=== PATIENT | female | born 1950 | race Caucasian/White ===

== ENCOUNTER 2023-07-18 18:21 | Observation (INO) | payer SELFPAY ==
--- NOTE | 2023-07-18 19:17 | RAD REPORT ---
EXAM DESCRIPTION: CT - Head Brain Wo Cont - 07/18/2023 7:11 pm CLINICAL HISTORY: CONFUSED Headache, drowsiness, disorientation COMPARISON: No comparisons TECHNIQUE: All CT scans are performed using dose optimization technique as appropriate and may inclu de automated exposure control or mA/KV adjustment according to patient size. FINDINGS: No intracranial hemorrhage, hydrocephalus or extra-axial fluid collection.Moderate general ized brain atrophy is present with mild periventricular and deep white matter chronic microvascular i schemic changes.No areas of brain edema or evidence of midline shift. The paranasal sinuses and mastoids are clear. The calvarium is intact. IMPRESSION: No acute intracranial abnormality.
[2023-07-18 19:19] LABS: Absolute Lymphocytes (CBC) 0.9 K/uL (0.7-4.9); Hematocrit 42.4 % (36.0-45.0); Lymphocytes % 14.1 % (15.3-44.8); MCV 97.8 fL (80-100); MPV 8.8 fL (7.6-11.3); Platelets 273 thou/uL (152-406); RBC Red Blood Cell Count 4.34 M/uL (3.86-4.86)
[2023-07-18 19:25] LABS: Protime INR 0.93
[2023-07-18 19:33] LABS: ALT/SGPT 28 U/L (13-56); AST/SGOT 28 U/L (15-37); Albumin 3.2 g/dL (3.4-5.0); Alkaline Phosphatase 231 U/L (45-117); BUN Blood Urea Nitrogen 10 mg/dL (7-18); Bicarbonate 26 mEq/L (21-32); Bilirubin Direct 0.4 mg/dL (0-0.2); Bilirubin Indirect, Calculated 0.7 mg/dL (0.2-0.8); Bilirubin Total 1.1 mg/dL (0.2-1.0); Glomerular Filtration Rate 85 ml/min (=/>90); Glucose Level 117 mg/dL (74-106); Potassium 3.1 mEq/L (3.5-5.1); Protein, Total 6.9 g/dL (6.4-8.2); Sodium Level 136 mEq/L (136-145)
[2023-07-18] MEDS ORDERED: NA CHLORIDE 0.9% 1,000 ML ONE (19:46)
[2023-07-18] MEDS ORDERED: IBUPROFEN 400 MG TAB ONE (19:47)
[2023-07-18] MEDS ORDERED: IBUPROFEN 200 MG TAB PO ONE (19:47)
[2023-07-18] MEDS ORDERED: POTASSIUM 25 MEQ EFFERV TAB ONE (20:11)
[2023-07-18 20:56] LABS: Renal Epithelial <5 /HPF (None Seen); Specific Gravity 1.013 (1.005-1.030); Urine Bacteria None Seen /HPF (<20); Urine Bilirubin NEGATIVE (Negative); Urine Blood Negative (Negative); Urine Clarity Turbid (Clear); Urine Color Yellow (Yellow); Urine Glucose NEGATIVE (Negative); Urine Mucus Slight /HPF (None Seen); Urine Protein NEGATIVE (Negative); Urine RBC <5 /HPF (None Seen); Urine Urobilinogen 1+ (Normal); Urine pH 6.5 (5.0-7.0)
[2023-07-18 21:04] LABS: Barbiturates NEGATIVE (NEGATIVE); Benzodiazepines NEGATIVE (NEGATIVE); Cocaine NEGATIVE (NEGATIVE); METHAMPHETAM NEGATIVE (NEGATIVE); Methadone NEGATIVE (NEGATIVE); Opiates NEGATIVE (NEGATIVE); Phencyclidine NEGATIVE (NEGATIVE); THC Cannibis NEGATIVE (NEGATIVE)
--- NOTE | 2023-07-18 21:19 | EDPHYS ---
Physician Documentation [facility] Name: Crystal Shelton Age: 72 yrs Sex: Female : 1950 Arrival Date: 07/18/2023 Time: 18:21 Bed 16 Private MD: ED Physician Magdalena Moffett HPI: 07/18 19:26 This 72 yrs old Female presents to ER via EMS with complaints of Altered Mental Status. sb4 19:26 The patient presents with confusion. EMS was called because patient was loitering at a 4 gas station. She believes that a family member dropped her off there. She has bruising around her right eye with a healing laceration above. [place] stated that [place], [place]. She knows her name, , and the year. complains of chronic pain in her shoulder, back, and legs. Historical: - Allergies: 18:35 Ativan; cm10 - PMHx: 18:35 Unable to Obtain; cm10 - Immunization history:: Adult Immunizations unknown. - Social history:: Smoking status: Patient reports the use of cigarette tobacco products, smokes one pack cigarettes per day. ROS: 19:26 Constitutional: Negative for fever, chills, and weight loss, sb4 19:26 Unable to obtain ROS due to altered mental status, Exam: 19:26 Constitutional: This is a well developed, well nourished patient who is awake, alert, sb4 and in no acute distress. 19:26 Head/Face: Normocephalic, atraumatic. ENT: Mucous membranes moist. Cardiovascular: Regular rate and rhythm with a normal S1 and S2. Respiratory: Lungs have equal breath sounds bilaterally, clear to auscultation and percussion. No rales, rhonchi or wheezes noted. No increased work of breathing, no retractions or nasal flaring. Abdomen/GI: Soft, non-tender, no distension. Skin: Warm, dry with normal turgor. Normal color with no rashes, no lesions, and no evidence of cellulitis. MS/ Extremity: Pulses equal, no cyanosis. Neurovascular intact. Full, normal range of motion. 19:26 Head/face: 19:26 Eyes: Periorbital structures: ecchymosis, that is moderate, on the right upper eyelid, medial canthus of right eye, lateral canthus of right eye and right lower eyelid, 19:26 Neuro: Orientation: to person, time, Not oriented to place, situation, Mentation: responsive to voice lucid, able to follow commands, confused, Memory: recent memory is impaired, Cerebellar function: is grossly normal, Motor: is normal, Sensation: is normal, Gait: is steady, appropriate for age, Vital Signs: 18:31 BP 142 / 84; Pulse 110; Resp 16; Pulse Ox 97% on R/A; Weight 58.97 kg; Height 5 ft. 6 cm10 in. ; 18:59 Temp 97.5; db 19:30 BP 139 / 93; Pulse 95; Resp 16; Pulse Ox 97% on R/A; rv 21:10 BP 147 / 89; Pulse 104; Resp 19; Pulse Ox 99% on R/A; rv 23:05 BP 141 / 86; Pulse 85; Resp 16; Temp 98; Pulse Ox 99% on R/A; rv 18:31 Body Mass Index 20.98 (58.97 kg, 167.64 cm) cm10 Reggie Coma Score: 19:30 Eye Response: spontaneous(4). Motor Response: obeys commands(6). Verbal Response: rv confused(4). Total: 14. 21:11 Eye Response: spontaneous(4). Motor Response: obeys commands(6). Verbal Response: rv confused(4). Total: 14. 23:05 Eye Response: spontaneous(4). Motor Response: obeys commands(6). Verbal Response: rv confused(4). Total: 14. MDM: 18:31 Patient medically screened. sb4 19:26 Differential Diagnosis: CVA, electrolyte abnormality, alcohol intoxication, sb4 hypoglycemia, intracranial bleed, overdose, TIA, UTI. 21:17 Data reviewed: vital signs, nurses notes, lab test result(s), EKG, radiologic studies, sb4 I have discussed the patient's presentation/case with the attending Emergency Department Physician; and as a result, I will admit patient. Consideration of Admission/Observation Patient was admitted/placed on observation. Management of patient was discussed with the following: Hospitalist: dr reyes. Counseling: I had a detailed discussion with the patient and/or guardian regarding the historical points, exam findings, and any diagnostic results supporting the discharge/admit diagnosis, the presence of at least one elevated blood pressure reading (>120/80) during this emergency department visit, lab results, radiology results, the need for further work-up and treatment in the hospital. 21:17 Care significantly affected by the following Social Determinants of Health: Poor access sb4 to healthcare and/or lack of insurance, Poor access to transportation, Problems related to primary support group. 07/18 18:42 Order name: Acetaminophen; Complete Time: 19:39 sb4 07/18 18:42 Order name: Basic Metabolic Panel; Complete Time: 19:39 sb4 07/18 18:43 Order name: CBC with Diff; Complete Time: 19:23 sb4 07/18 18:43 Order name: ETOH Level; Complete Time: 19:34 sb4 07/18 18:43 Order name: Hepatic Function; Complete Time: 19:39 sb4 07/18 18:43 Order name: PT-INR; Complete Time: 19:26 sb4 07/18 18:43 Order name: Ptt, Activated; Complete Time: 19:26 sb4 07/18 18:43 Order name: Salicylate; Complete Time: 19:30 sb4 07/18 18:43 Order name: Urinalysis w/ reflexes; Complete Time: 20:59 sb4 07/18 18:43 Order name: Urine Drug Screen; Complete Time: 21:05 sb4 07/18 18:43 Order name: AMMONIA; Complete Time: 20:02 sb4 07/18 22:44 Order name: CBC with Automated Diff EDMS 07/18 22:44 Order name: CBC with Automated Diff EDMS 07/18 22:44 Order name: Comprehensive Metabolic Panel EDMS 07/18 22:44 Order name: Comprehensive Metabolic Panel EDMS 07/18 22:44 Order name: Lipid Profile EDMS 07/18 22:44 Order name: Lipid Profile EDMS 07/18 22:44 Order name: Magnesium EDMS 07/18 22:44 Order name: Magnesium EDMS 07/18 18:43 Order name: Head Brain Wo Cont CT; Complete Time: 19:19 sb4 07/18 18:43 Order name: EKG; Complete Time: 18:43 sb4 07/18 18:43 Order name: EKG - Nurse/Tech; Complete Time: 19:19 sb4 02/03 18:43 Order name: IV Saline Lock; Complete Time: 19:19 sb4 07/18 18:43 Order name: Labs collected and sent; Complete Time: 19:19 sb4 07/18 18:43 Order name: Suicide Screening ([place]); Complete Time: 19:19 sb4 Administered Medications: 19:50 Drug: NS 0.9% IV 1000 ml IV at 1 bolus Per protocol; 1000 mL bolus Route: IV; Rate: 1 rv bolus; Site: left antecubital; 23:06 Follow up: IV Status: Completed infusion; IV Intake: 1000ml rv 19:50 Drug: Ibuprofen PO 600 mg PO once Route: PO; rv 23:06 Follow up: Response: No adverse reaction rv 20:12 Drug: Potassium PO Effervescent Tablet 50 mEq PO once; dissolve in 4 ounces of water or rv juice Route: PO; 23:06 Follow up: Response: No adverse reaction rv Disposition Summary: 07/18/23 21:18 Hospitalization Ordered Notes: Hospitalization Status: Inpatient Admission sb4 Provider: Raman Reyes sb4 [facility] sb4 Condition: Fair sb4 Problem: new sb4 Symptoms: are unchanged sb4 Bed/Room Type: Standard sb4 Room Assignment: 427(07/18/23 23:00) jb4 Diagnosis - Altered mental status, unspecified sb4 Forms: - Medication Reconciliation Form sb4 - SBAR form sb4 - Leadership Thank You Letter sb4 Signatures: Dispatcher [employer] Benedicto Tian RN RN jb4 Francisco Garcia RN RN rv Brown, Sophia, PA-C PA-C sb4 Beverly Najera RN RN cm10 Corrections: (The following items were deleted from the chart) 23:00 21:18 sb4 jb4
--- NOTE | 2023-07-18 21:19 | ER ---
Nurse's Notes [facility] Name: Crystal Shelton Age: 72 yrs Sex: Female : 1950 Arrival Date: 07/18/2023 Time: 18:21 Bed 16 Private MD: Diagnosis: Altered mental status, unspecified Presentation: 07/18 18:31 Chief complaint: EMS states: called to gas station due to patient being altered. Pt cm10 thought that she was in [place]. Per EMS report, pt only oriented to self. During triage, pt A\T\Ox3. Pt noted to have bruising to right eye. Unknown when last normal was. Coronavirus screen: Vaccine status: Patient reports receiving the 2nd dose of the covid vaccine. Client denies travel out of the [place] in the last 14 days. Ebola Screen: Patient denies travel to an Ebola-affected area in the 21 days before illness onset. No symptoms or risks identified at this time. Initial Sepsis Screen: Does the patient meet any 2 criteria? No. Patient's initial sepsis screen is negative. Does the patient have a suspected source of infection? No. Patient's initial sepsis screen is negative. Risk Assessment: Do you want to hurt yourself or someone else? Patient reports no desire to harm self or others. Onset of symptoms is unknown. 18:31 Method Of Arrival: EMS: [facility] cm10 18:31 Acuity: PURNIMA 2 cm10 Historical: - Allergies: 18:35 Ativan; cm10 - PMHx: 18:35 Unable to Obtain; cm10 - Immunization history:: Adult Immunizations unknown. - Social history:: Smoking status: Patient reports the use of cigarette tobacco products, smokes one pack cigarettes per day. Screenin:50 [facility] ED Fall Risk Assessment (Adult) History of falling in the last 3 months, rv including since admission No falls in past 3 months (0 pts) Confusion or Disorientation Yes (5 pts) Score/Fall Risk Level 3 or more points = High Risk Oriented to surroundings, Maintained a safe environment, Educated pt \T\ family on fall prevention, incl call for assistance when getting out of bed, Assessed \T\ reinforced patient's understanding of fall precautions. Abuse screen: Denies threats or abuse. Denies injuries from another. Nutritional screening: No deficits noted. Tuberculosis screening: No symptoms or risk factors identified. Assessment: 18:48 Reassessment:. db 19:50 General: Appears comfortable, Behavior is calm, cooperative. Pain: Complains of pain in rv back. Neuro: Level of Consciousness is awake, alert, obeys commands, confused, Oriented to person. Cardiovascular: Capillary refill < 3 seconds Patient's skin is warm and dry. Respiratory: Airway is patent Respiratory effort is even, unlabored. GI: No signs and/or symptoms were reported involving the gastrointestinal system. : No signs and/or symptoms were reported regarding the genitourinary system. Derm: Skin is intact. Vital Signs: 18:31 BP 142 / 84; Pulse 110; Resp 16; Pulse Ox 97% on R/A; Weight 58.97 kg; Height 5 ft. 6 cm10 in. ; 18:59 Temp 97.5; db 19:30 BP 139 / 93; Pulse 95; Resp 16; Pulse Ox 97% on R/A; rv 21:10 BP 147 / 89; Pulse 104; Resp 19; Pulse Ox 99% on R/A; rv 23:05 BP 141 / 86; Pulse 85; Resp 16; Temp 98; Pulse Ox 99% on R/A; rv 18:31 Body Mass Index 20.98 (58.97 kg, 167.64 cm) cm10 [place] Coma Score: 19:30 Eye Response: spontaneous(4). Motor Response: obeys commands(6). Verbal Response: rv confused(4). Total: 14. 21:11 Eye Response: spontaneous(4). Motor Response: obeys commands(6). Verbal Response: rv confused(4). Total: 14. 23:05 Eye Response: spontaneous(4). Motor Response: obeys commands(6). Verbal Response: rv confused(4). Total: 14. ED Course: 18:27 Patient arrived in ED. cm10 18:31 Татьяна Moran PA-C is PHCP. sb4 18:31 Magdalena Moffett MD is Attending Physician. sb4 18:34 Triage completed. cm10 18:35 Arm band placed on Patient placed in an exam room, on a stretcher, on pulse oximetry. cm10 19:13 Head Brain Wo Cont CT In Process Unspecified. EDMS 19:20 Francisco Garcia, RN is Primary Nurse. rv 19:50 Patient has correct armband on for positive identification. Client placed on continuous rv cardiac and pulse oximetry monitoring. NIBP monitoring applied. hospital monitor on. 19:50 No provider procedures requiring assistance completed. Inserted saline lock: 22 gauge rv in left antecubital area, using aseptic technique. Blood collected. 21:18 Raman Reyes MD is Hospitalizing Provider. sb4 23:05 Patient admitted, IV remains in place. rv Administered Medications: 19:50 Drug: NS 0.9% IV 1000 ml IV at 1 bolus Per protocol; 1000 mL bolus Route: IV; Rate: 1 rv bolus; Site: left antecubital; 23:06 Follow up: IV Status: Completed infusion; IV Intake: 1000ml rv 19:50 Drug: Ibuprofen PO 600 mg PO once Route: PO; rv 23:06 Follow up: Response: No adverse reaction rv 20:12 Drug: Potassium PO Effervescent Tablet 50 mEq PO once; dissolve in 4 ounces of water or rv juice Route: PO; 23:06 Follow up: Response: No adverse reaction rv Medication: 19:50 VIS not applicable for this client. rv Intake: 23:06 IV: 1000ml; Total: 1000ml. rv Outcome: 21:18 Decision to Hospitalize by Provider. sb4 23:04 Admitted to Med/surg accompanied by tech, via wheelchair, room 427, with chart, Report rv called to freida yeager 23:04 Condition: good 23:04 Instructed on the need for admit, 23:15 Patient left the ED. rv Signatures: Dispatcher [employer] EDMS Francisco Garcia RN RN rv Tanya Jacobo RN Татьяна Neri PANicolette PA-Jimmie [email or web address] Beverly Najera RN RN cm10
[2023-07-18] MEDS ORDERED: ACETAMINOPHEN 325 MG TABLET PO PRN (22:38)
[2023-07-18] MEDS ORDERED: ONDANSETRON 4 MG/2 ML VIAL IV PRN (22:38)
--- NOTE | 2023-07-18 22:46 | P.HP ---
Certification for Inpatient Patient admitted to: Observation With expected LOS: <2 Midnights Practitioner: I am a practitioner with admitting privileges, knowledge of patient current condition, hospital course, and medical plan of care. Services: Services provided to patient in accordance with Admission requirements found in Title 42 Section 412.3 of the Code of Federal Regulations Patient History Date of Service: 07/19/23 Reason for admission: Altered mentation. History of Present Illness: 72-year-old female patient who has known verifiable medical history who was brought in to the hospital by passerby's for episode of altered mentation and wandering. She could not explain symptoms and in the emergency room she was worked up and found to have mild hypokalemia with a potassium of 3.1. UA was concerning for possible urinary tract infection however there was no significant leukocytosis. Vital signs were within acceptable limit. She was admitted for workup of altered mentation. Allergies lorazepam [From Ativan] Allergy (Verified 07/18/23 23:32) causes anxiety shellfish derived Allergy (Verified 07/18/23 23:32) Anaphylaxis Review of Systems is unable to be obtained (Due to altered mentation) Physical Examination - Physical Exam General: Alert, Disheveled HEENT: Atraumatic Neck: Supple Respiratory: Normal air movement Cardiovascular: Regular rate/rhythm, Normal S1 S2 Gastrointestinal: Soft and benign Musculoskeletal: No swelling - Studies Laboratory Data (last 24 hrs) 07/18/23 07/18/23 07/18/23 18:55 18:55 18:55 WBC 6.50 Hgb 14.5 Hct 42.4 Plt Count 273 PT 10.3 INR 0.93 APTT 28.6 Sodium 136 Potassium 3.1 L BUN 10 Creatinine 0.75 Glucose 117 H Total Bilirubin 1.1 H AST 28 ALT 28 Alkaline Phosphatase 231 H Assessment and Plan - Plan Altered mental status: Deemed secondary to/metabolic encephalopathy. UDS was negative. UA was not concerning for UTI. Will continue empiric Rocephin therapy. Continue supportive care with IV fluid. Will evaluate with imaging studies. Hypokalemia: Potassium is low at 3.1. Replete and follow levels. Prophylaxis: Lovenox for DVT prophylaxis CODE STATUS: Full code Disposition: For workup of altered mentation and treat possible UTI and discharge she is deemed clinically stable. - Advance Directives Does patient have a Living Will: No Does patient have a Durable POA for Healthcare: No
[2023-07-18 23:54] VITALS: BMI 20.9
[2023-07-19] MEDS: NA CHLORIDE 0.9% 1,000 ML IV SCH ×2 (01:06→08:29)
[2023-07-19 07:15] LABS: Hematocrit 39.5 % (36.0-45.0); Lymphocytes % 23.9 % (15.3-44.8); MCV 99.7 fL (80-100); MPV 9.3 fL (7.6-11.3); Platelets 251 thou/uL (152-406); RBC Red Blood Cell Count 3.96 M/uL (3.86-4.86)
[2023-07-19 07:18] LABS: Albumin 2.6 g/dL (3.4-5.0); Magnesium 1.6 mg/dL (1.6-2.4); Protein, Total 5.7 g/dL (6.4-8.2)
[2023-07-19] MEDS ORDERED: ENOXAPARIN 40 MG/0.4 ML SQ SCH (09:00)
[2023-07-19] MEDS ORDERED: CEFTRIAXONE 1,000 MG in NA CHLORIDE 0.9% 50 ML IVPB SCH (09:00)
[2023-07-19 09:42] VITALS: TEMP 97.5
--- NOTE | 2023-07-19 09:52 | P.PN ---
Date of Service: 07/19/23 Subjective: Still confused/disoriented She is unsure what states she is in Was able to tell me her name and the year ROS: 10 point ROS as noted above, otherwise negative Physical exam GEN: Alert, confused, oriented x 2, NAD HEENT: Normal conjunctiva, sclera anicteric CV: Regular rate and rhythm, no edema Pulm: Nonlabored respirations on room air ABD: Soft, nontender, nondistended MSK: No joint tenderness Integumentary: No rashes Neuro: Normal speech, normal affect Vitals reviewed Problem List Altered mental status Hypertension Hyperlipidemia Plan Altered mental status Patient still very confused Unclear what her baseline mental status is She denies having any information for family member we can reach out to Son possibly named Jamel Shelton Patient reports losing her phone a few days ago, does not know any family members phone numbers Says she lives in an apartment-unsure where No focal neurological deficits, no fevers or leukocytosis CT head unremarkable Continue to work to try to find family Further workup including likely MRI tomorrow Will obtain UDS if not previously ordered Hypertension Hyperlipidemia Continue home medications once verified VTE: Lovenox Code: Full Dispo: 48 to 72 hours Time Spent Managing Pts Care (In Minutes): 35
[2023-07-19] MEDS ORDERED: MAGNESIUM SULFATE 1 gm IVPB 1 GM/100 ML BAG IV ONE (10:00)
--- NOTE | 2023-07-19 11:37 | P.DS ---
Admission Date: 07/18/23 Discharge Date: 07/19/23 Disposition: ROUTINE DISCHARGE Discharge Condition: GOOD Reason for Admission: Altered mentation. Consultations: none Brief History of Present Illness: 72-year-old female patient who has known verifiable medical history who was brought in to the hospital by passerpaul's for episode of altered mentation and wandering. She could not explain symptoms and in the emergency room she was worked up and found to have mild hypokalemia with a potassium of 3.1. UA was concerning for possible urinary tract infection however there was no significant leukocytosis. Vital signs were within acceptable limit. She was admitted for workup of altered mentation. Hospital Course: Problem List Altered mental status Hypertension Hyperlipidemia Patient was admitted to the hospital for altered mental status after being found wandering around a gas station parking lot. It was difficult to find any con tact information for family. Patient reports that she does deal with confusion/disorientation. After reviewing home medications through EMR I was able to contact patient's primary care physician's office who connected me to her brother Lee who can be reached at [phone] Lee reported that Ms. Shelton deals with cognitive issues including significant disorientation/confusion and has had similar episodes in the past where she gets in her car and drives getting lost and needs to be picked up. 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 Based on my description of her current clinical situation and he reports she is similar to her baseline mental status. Her brother Lee plans on going to the hospital to pick her up and drive her home. It was discussed that the patient should not be driving. Discussed with patient who then remembered her brother Lee. Discussed with patient that she should not be driving under any circumstances. Patient will be discharged in to the care of her brother Lee. nutrition services aide also to reach out to brothmil to see if there is any additional resources we can provide for her. Please follow-up with primary care doctor in 1 to [address] Vital Signs/Physical Exam: Temp Pulse Resp BP Pulse Ox 97.5 F 122 H 19 145/95 H 95 07/19/23 08:00 07/19/23 08:00 07/19/23 08:00 07/19/23 08:00 07/19/23 08:00 General: Alert, In no apparent distress, Oriented x2 HEENT: Atraumatic, PERRLA Neck: Supple, JVD not distended Respiratory: Clear to auscultation bilaterally, Normal air movement Cardiovascular: Regular rate/rhythm, Normal S1 S2 Gastrointestinal: Normal bowel sounds, No tenderness Musculoskeletal: No tenderness Integumentary: No rashes, Other (Bruising around right eye) Neurological: Normal speech, Normal tone, Normal affect Laboratory Data at Discharge: WBC 4.00 thou/uL (4.3-10.9) L 07/19/23 06:30 Hgb 13.2 g/dL (12.0-15.0) D 07/19/23 06:30 Hct 39.5 % (36.0-45.0) 07/19/23 06:30 Plt Count 251 thou/uL (152-406) 07/19/23 06:30 PT 10.3 SECONDS (9.5-12.5) 07/18/23 18:55 INR 0.93 07/18/23 18:55 APTT 28.6 SECONDS (24.3-36.9) 07/18/23 18:55 Sodium 140 mEq/L (136-145) 07/19/23 06:30 Potassium 4.0 mEq/L (3.5-5.1) D 07/19/23 06:30 BUN 7 mg/dL (7-18) 07/19/23 06:30 Creatinine 0.61 mg/dL (0.55-1.02) 07/19/23 06:30 Glucose 85 mg/dL (74-106) 07/19/23 06:30 Magnesium 1.6 mg/dL (1.6-2.4) 07/19/23 06:30 Total Bilirubin 1.0 mg/dL (0.2-1.0) 07/19/23 06:30 AST 26 U/L (15-37) 07/19/23 06:30 ALT 22 U/L (13-56) 07/19/23 06:30 Alkaline Phosphatase 194 U/L (45-117) H 07/19/23 06:30 Triglycerides 70 mg/dL (<150) 07/19/23 06:30 Cholesterol 179 mg/dL (<200) 07/19/23 06:30 HDL Cholesterol 47 mg/dL (40-60) 07/19/23 06:30 Cholesterol/HDL Ratio 3.81 07/19/23 06:30 Physician Discharge Instructions: Patient was admitted to the hospital for altered mental status after being found wandering around a gas station parking lot. It was difficult to find any contact information for family. Patient reports that she does deal with confusion/disorientation. After reviewing home medications through EMR I was able to contact patient's primary care physician's office who connected me to her brother Lee who can be reached at [phone] Lee reported that Ms. Shelton deals with cognitive issues including significant disorientation/confusion and has had similar episodes in the past where she gets in her car and drives getting lost and needs to be picked up. He reports in the past she was alcoholic and has resulting chronic cognitive issues. Lee came to the hospital and saw them this winter, states that her mental status is similar to her baseline. We had a long discussion together with Lee and Ms. Shelton regarding the fact that she should not be operating motor vehicle under any circumstances given her current cognitive condition. Lee plans on driving Ms. Shelton home. Discussed importance of close follow-up with PCP, taking further steps to possibly have warehouse driver's license revoked. It was discussed that the patient should not be driving. Patient will be discharged in to the care of her brother Lee. nutrition services aide also to reach out to brother to see if there is any additional resources we can provide for her. Please follow-up with primary care doctor in 1 to [address] Diet: Regular Activity: Fall precautions Followup: NONE,NONE [Primary Care Provider] - 1-2 Weeks Time spent managing pt's care (in minutes): 35
[2023-07-19 12:06] VITALS: O2SAT 95
[2023-07-19 12:42] VITALS: BP 157/90
[2023-07-19] MEDS ORDERED: DILTIAZEM HCL 120 MG SR CAP PO SCH (13:00)
[2023-07-19] MEDS ORDERED: LOPERAMIDE HCL 2 MG CAPSULE PO STA (14:02)
== END 2023-07-19 14:30 | disposition home or self-care (01) ==
LOC: ER 18:21 → ERHOLD 22:38 → 4TH 23:07
PROVIDERS: ADMIT Internal Medicine Nephrology; ATTEND Hospitalist
DX: R41.82 Altered mental status, unspecified (principal); E87.6 Hypokalemia; I10 Essential (primary) hypertension; E78.5 Hyperlipidemia, unspecified
CPT/HCPCS: 36415; 70450; 80048; 80053; 80061; 80076; 80143; 80179; 80307; 81001; 82077; 82140; 83735; 85025; 85610; 85730; G0378; J0696; J1650; J3475; J7030